=== PATIENT | male | born 1960 | race Hispanic/Latino ===

== ENCOUNTER → 2024-06-14 | Outpatient (CLI) | payer OTHER ==
--- NOTE | 2024-06-15 09:45 | HMCSR ---
APPROVED REPORT EXAM: Two-dimensional and M-mode echocardiogram with Doppler and color Doppler. INDICATION ICD: I15.9 2D Dimensions RVDd4.7 cmLVEF(%)58.1 (>50%)LVED Vol(simp.)107.0 mL IVSd1.3 (0.7-1.1cm)FS(%)31 %LVES Vol(simp.)42.5 mL LVDd4.9 (3.8-5.6cm)LA (2D)3.9 (1.6-4.0cm)LVEF(%, simp.)60 % PWd1.0 (0.7-1.1cm)Ao Root(2D)2.7 (2.0-3.7cm)LA ESV INDEX (4CH)29.50 mL/m2 IVSs1.5 cmLVOT diam2.0 (1.8-2.4cm)LA ESV INDEX (2CH)25.60 mL/m2 LVDs3.4 (2.5-4.0cm)LA ESV INDEX (BP)27.80 mL/m2 PWs1.5 cm M-Mode Dimensions EPSS0.9 cm LA (MM)4.2 (1.6-4.0cm) Ao Root(MM)3.1 (2.0-3.7cm) Aortic Valve AoV VTI0.3 mAo Mean GR4.0 mmHgLVOT VTI0.20 m KRISTAL (VMAX)2.5 cm2AVA (VTI) 2.5 cm2 Mitral Valve MV E Vmax53.4 cm/sDECEL Kygw331 ms MV A Vmax75.7 cm/sP 1/2 T60 ms E/A ratio0.7MVA (PHT)3.7 cm2 MR Max PG29 mmHg TDI E/E' Ufecnz60.4E/E' Fgsvdyu86.5 Medial E' Peak V4.70 cm/sLateral E' Peak V5.10 cm/s Pulmonary Valve PV VTI0.24 mPV Mean GR5 mmHg Tricuspid Valve TR Vmax2.3 m/sRAP (EST) 3 afYqOXMA44.1 mmHg TR Peak GR22.1 mmHg Left Ventricle Left ventricular cavity size is normal. There is normal LV segmental wall motion. Mild to moderate co ncentric left ventricular hypertrophy. LVEF is 61%. Indeterminate diastolic dysfunction. Right Ventricle The right ventricle is moderately dilated. The right ventricular systolic function is normal. Atria The left atrium size is normal. The right atrium size is normal. Aortic Valve Aortic valve is trileaflet and opens well. No aortic regurgitation is present. There is no aortic frank vular stenosis. Mitral Valve Mitral valve leaflets open well. There is trace mitral valve regurgitation noted. There is no mitral valve stenosis. Tricuspid Valve The tricuspid valve is normal in structure and function. There is trace of tricuspid valve regurgitat ion noted. Pulmonic Valve The pulmonary valve is normal in structure and function. There is no pulmonic valvular regurgitation. Great Vessels The aortic root is normal in size. The IVC is normal in size and collapses >50% with inspiration. Pericardium No pericardial effusion. Other Information Quality : Adequate
== END | disposition home or self-care (01) ==
LOC: RAH 11:11
PROVIDERS: ATTEND Chiropractor
DX: I51.7 Cardiomegaly (principal); I15.9 Secondary hypertension, unspecified
CPT/HCPCS: 93306